=== PATIENT | male | born 1945 | race Caucasian/White ===

== ENCOUNTER 2023-08-11 13:31 | Inpatient (IN) | payer MEDICARE ==
[~2023-08-11] VITALS: Ht 177.8 cm; Wt 69.7 kg
[2023-08-11] MEDS ORDERED: SODIUM CHLORIDE 0.9% 1,000 ML IV ONE (14:30)
[2023-08-11] MEDS ORDERED: SODIUM CHLORIDE 0.9% 2,000 ML IV ONE (14:30)
[2023-08-11] MEDS ORDERED: ACETAMINOPHEN 500 MG TABLET PO ONE (14:30)
[2023-08-11] MEDS ORDERED: 0.9% SODIUM CHLORIDE 10 ML SYRINGE IVP PRN (14:30)
[2023-08-11] MEDS ORDERED: CefTRIAXone 1 GM/DEXTROSE 50 ML IV ONE (14:30)
[2023-08-11 15:02] LABS: COVID AG,FIA SOURCE NASAL SWAB
[2023-08-11 15:04] LABS: HEMOGLOBIN 9.8 g/dL (13.5-17.5); MEAN CORPUSCULAR HEMOGLOBIN 30.8 pg (26.0-34.0); MEAN CORPUSCULAR HGB CONC 32.7 G/dL (31.0-37.0); MEAN CORPUSCULAR VOLUME 94 fL (80-100); PLATELET COUNT (AUTO) 133 K/uL (150-450); RED BLOOD CELL COUNT(AUTO) 3.19 MIL/uL (4.50-5.90); RED CELL DISTRIBUTION WIDTH 18.3 % (11.5-14.5); WHITE BLOOD COUNT (AUTO) 8.4 K/uL (4.5-11.0)
[2023-08-11 15:14] LABS: ANION GAP 10 mmol/L (8-16); CALCIUM, TOTAL 9.6 mg/dL (8.8-10.5); CARBON DIOXIDE 31 mmol/L (22-29); CHLORIDE 98 mmol/L (98-107); CREATININE 4.64 mg/dL (0.60-1.30); GLOMERULAR FILTR. RATE CALC 12 mL/min (>60); GLUCOSE,RANDOM 92 mg/dL (70-110); POTASSIUM 4.1 mmol/L (3.5-5.1); SODIUM SERUM 139 mmol/L (136-145)
[2023-08-11 15:19] LABS: AMMONIA 13 umol/L (11-32); B-TYPE NATRIURETIC PEPTIDE 310 pg/mL (0-100); TROPONIN I-HIGH SENSITIVITY 73 ng/L (<76)
[2023-08-11 15:23] LABS: INR 1.3 (0.9-1.1); PROTHROMBIN TIME 13.5 SEC (9.4-11.6)
[2023-08-11 15:26] LABS: LACTIC ACID 1.8 mmol/L (0.4-2.0)
[2023-08-11 15:30] LABS: INFLUENZA TYPE A NEGATIVE FOR TYPE A (NEGATIVE); INFLUENZA TYPE B NEGATIVE FOR TYPE B (NEGATIVE); SARS-COV2 (COVID) ANTIGEN,FIA Negative (Negative)
[2023-08-11 15:31] LABS: BAND NEUTROPHILS % (MANUAL) 15 % (0-5); MONOCYTES % (MANUAL) 2 % (2-9); SEGMENTED NEUTROPHILS % 83 % (40-70); TOTAL CELLS COUNTED 100
[2023-08-11] MEDS ORDERED: SPIR-37 PO (15:35)
[2023-08-11] MEDS ORDERED: METO25 PO (15:35)
[2023-08-11] MEDS ORDERED: MAGN400T57 PO (15:35)
[2023-08-11] MEDS ORDERED: LEVO112T4 PO (15:35)
[2023-08-11] MEDS ORDERED: TAMS0.4C34 PO (15:35)
[2023-08-11] MEDS ORDERED: CYAN500T56 PO (15:35)
[2023-08-11] MEDS ORDERED: APIX5TAB PO (15:35)
[2023-08-11] MEDS ORDERED: ATOR40TA28 PO (15:35)
[2023-08-11] MEDS ORDERED: FURO40 PO (15:35)
[2023-08-11] MEDS ORDERED: MIRT-149 PO (15:35)
[2023-08-11 15:38] LABS: ALANINE AMINOTRANSFERASE 26 U/L (12-78); ALBUMIN 2.6 g/dL (3.4-5.0); ALKALINE PHOSPHATASE 95 U/L (46-116); ASPARTATE AMINOTRANSFERASE 53 U/L (15-37); BILIRUBIN,TOTAL 1.2 mg/dL (0.1-1.0); CREATINE KINASE, TOTAL ONLY 133 U/L (39-308); TOTAL PROTEIN, SERUM 6.8 g/dL (6.4-8.2)
[2023-08-11 15:42] LABS: UREA NITROGEN, BLOOD 115 mg/dL (7-18)
[2023-08-11] MEDS ORDERED: ACETAMINOPHEN 1000 MG/ISO-OSM 100 ML IV ONE (15:45)
[2023-08-11] MEDS ORDERED: PIPERACILLIN/TAZO 3.375 GM/D5W 50 ML IV ONE (16:00)
[2023-08-11] MEDS ORDERED: BISACODYL 10 MG RECTAL RECTAL SUPPOSITORY PR PRN (16:15)
[2023-08-11] MEDS ORDERED: ONDANSETRON HCL 4 MG/2 ML VIAL IVP PRN (16:15)
[2023-08-11] MEDS ORDERED: ACETAMINOPHEN 325 MG TABLET PO PRN (16:15)
[2023-08-11 16:29] LABS: APPEARANCE,URINE TURBID (CLEAR); BILIRUBIN,URINE NEGATIVE (NEGATIVE); COLOR,URINE LIGHT RED (YELLOW); GLUCOSE, URINE (UA) NEGATIVE (NEGATIVE); KETONES,URINE NEGATIVE (NEGATIVE); LEUKOCYTE ESTERASE ,URINE MODERATE (NEGATIVE); NITRATE,URINE NEGATIVE (NEGATIVE); OCCULT BLOOD,URINE LARGE (NEGATIVE); PROTEIN,URINE >600,SEE CONFIRM mg/dL (NEGATIVE); SPECIFIC GRAVITIY, URINE 1.012 (1.003-1.030); UROBILINOGEN,URINE <=1.0 mg/dL (<=1.0)
[2023-08-11] MEDS ORDERED: NOREPINEPHRINE 8 MG/0.9 % NACL 250 ML IV ONE (16:42)
[2023-08-11] MEDS ORDERED: VANCOMYCIN 1GM/WATER(PEG/NADA) 200 ML IV PRN (16:45)
[2023-08-11 16:49] LABS: SULFOSALICYLIC ACID,URINE 4+ (Negative)
[2023-08-11] MEDS: NOREPINEPHRINE 8 MG/0.9 % NACL 250 ML IV PRN (16:57)
[2023-08-11] MEDS ORDERED: VANCOMYCIN 1GM/WATER(PEG/NADA) 200 ML IV ONE (17:00)
[2023-08-11 17:12] LABS: HEMATOCRIT 25.1 % (41-53); HEMOGLOBIN 8.3 g/dL (13.5-17.5)
[2023-08-11 18:27] LABS: ABG BASE EXCESS 0.1 mmol/L (-2.0-3.0); ABG CARBOXYHEMOGLOBIN 0.2 % (0.0-1.5); ABG HCO3 24.2 mmol/L (22.0-26.0); ABG METHEMOGLOBIN 0.3 % (0.0-1.5); ABG OXYGEN CONTENT 12.9 mL/dL (15.0-23.0); ABG OXYGEN SATURATION 98.1 % (95.0-98.0); ABG OXYHEMOGLOBIN 97.6 % (94.0-100.0); ABG PCO2 55 mmHg (35-45); ABG TOTAL HEMOGLOBIN 9.2 G/dL (12.0-18.0); PO2, ARTERIAL BG 139.9 mmHg (75.0-83.0); SOURCE, BLOOD GAS ARTERIAL; TEMPERATURE, FAHRENHEIT, BG 97.3 FAHREN (96.0-98.6)
[2023-08-11 18:28] LABS: SITE, BLOOD GAS RT BRACHIAL
[2023-08-11 18:29] LABS: O2 DEVICE,BLOOD GAS CANNULA (ROOM AIR)
[2023-08-11 20:00] VITALS: BP 102/50; PULSE 83; PULSE 86; RESP 16; RESP 18; TEMP 96.7; O2SAT 100
[2023-08-11] MEDS ORDERED: SODIUM CHLORIDE 0.9% 1,000 ML IV SCH (20:00)
[2023-08-11 21:00] VITALS: PULSE 83; RESP 16; O2SAT 100
[2023-08-11 23:30] LABS: HEMATOCRIT 26.7 % (41-53); HEMOGLOBIN 8.8 g/dL (13.5-17.5)
[2023-08-12] VITALS (19 sets, daily range): BP systolic 101–136; BP diastolic 48–68; PULSE 76–97; RESP 12–18; TEMP 96.8–98.2; O2SAT 94–100
[2023-08-12] MEDS ORDERED: SODIUM CHLORIDE 0.9% 250 ML IV ONE (02:03)
[2023-08-12] MEDS: PIPERACILLIN SODIUM/TAZOBACTAM 2.25 GM in DEXTROSE 5%-WATER 50 ML IV SCH ×3 (02:06→17:41)
[2023-08-12 05:30] LABS: HEMATOCRIT 26.9 % (41-53); HEMOGLOBIN 8.9 g/dL (13.5-17.5)
[2023-08-12 05:42] LABS: CALCIUM, TOTAL 8.6 mg/dL (8.8-10.5); CREATININE 4.45 mg/dL (0.60-1.30); POTASSIUM 3.5 mmol/L (3.5-5.1)
[2023-08-12] MEDS: ETHYL ALCOHOL 62% ANTISEPTIC NASAL SANITIZER 0.6 ML AMPUL NASAL SCH ×2 (09:14→21:00)
[2023-08-12 09:41] LABS: ABG A-A DIFF O2 47.8 mmHg (10-20.0); ABG BASE EXCESS -0.8 mmol/L (-2.0-3.0); ABG CARBOXYHEMOGLOBIN 0.7 % (0.0-1.5); ABG HCO3 23.8 mmol/L (22.0-26.0); ABG METHEMOGLOBIN 0.3 % (0.0-1.5); ABG OXYGEN CONTENT 14.3 mL/dL (15.0-23.0); ABG OXYGEN SATURATION 98.6 % (95.0-98.0); ABG OXYHEMOGLOBIN 97.6 % (94.0-100.0); ABG PCO2 39 mmHg (35-45); ABG PH 7.407 (7.35-7.450); ABG TOTAL HEMOGLOBIN 10.2 G/dL (12.0-18.0); ALLEN TEST, BLOOD GAS Positive; O2 DEVICE,BLOOD GAS BIPAP (ROOM AIR); PO2, ARTERIAL BG 121.9 mmHg (75.0-83.0); SITE, BLOOD GAS LFT RADIAL; SOURCE, BLOOD GAS ARTERIAL; TEMPERATURE, FAHRENHEIT, BG 95.8 FAHREN (96.0-98.6)
[2023-08-12 09:42] LABS: SPONTANEOUS VT, BG 731 ml
[2023-08-12] MEDS ORDERED: MIDAZOLAM HCL 5 MG/ML VIAL ONE (10:10)
[2023-08-12] MEDS ORDERED: MIDAZOLAM HCL 2 MG/2 ML VIAL ONE (10:12)
[2023-08-12] MEDS ORDERED: HYDROmorphone HCL 2 MG/ML SYRINGE ONE (10:15)
[2023-08-12] MEDS ORDERED: HYDROmorphone HCL 2 MG/ML SYRINGE IVP ONE (11:00)
[2023-08-12] MEDS ORDERED: MIDAZOLAM HCL 2 MG/2 ML VIAL IVP ONE (11:00)
[2023-08-12] MEDS ORDERED: HEPARIN SODIUM,PORCINE 1,000 UNITS/ML VIAL IVCATH PRN ×2 (11:00)
[2023-08-12 11:49] LABS: HEMOGLOBIN 9.4 g/dL (13.5-17.5)
[2023-08-12] MEDS ORDERED: HEPARIN SODIUM,PORCINE 1,000 UNITS/ML VIAL IVP ONE (12:00)
[2023-08-12 13:37] LABS: C.DIFF GDH ANTIGEN, Stool Positive (Negative); C.DIFF TOXINS A&B, Stool Negative (Negative)
[2023-08-12] MEDS ORDERED: SODIUM CHLORIDE 0.9% 2,000 ML ONE (14:34)
[2023-08-12 15:49] LABS: BACTERIA,URINE Many /HPF (None Seen)
[2023-08-12 17:04] LABS: HEMATOCRIT 31.6 % (41-53); HEMOGLOBIN 10.3 g/dL (13.5-17.5)
[2023-08-12 17:29] LABS: RBC,URINE 51-100 /HPF (0-2)
[2023-08-12 17:30] LABS: WBC,URINE 51-100 /HPF (0-5)
[2023-08-12] MEDS: MetroNIDAZOLE 500 MG/NACL 100 ML IV SCH (18:26)
[2023-08-12 23:41] LABS: HEMATOCRIT 28.1 % (41-53); HEMOGLOBIN 9.2 g/dL (13.5-17.5)
[2023-08-13] VITALS (18 sets, daily range): BP systolic 91–152; BP diastolic 50–88; PULSE 71–115; RESP 14–28; TEMP 98.2–99.8; O2SAT 98–99
[2023-08-13] MEDS: PIPERACILLIN SODIUM/TAZOBACTAM 2.25 GM in DEXTROSE 5%-WATER 50 ML IV SCH ×3 (02:21→18:25)
[2023-08-13] MEDS: MetroNIDAZOLE 500 MG/NACL 100 ML IV SCH ×3 (03:30→21:35)
[2023-08-13 06:48] LABS: BASOPHILS % (AUTO) 0.3 % (0.0-2.0); EOSINOPHILS % (AUTO) 0.6 % (1.0-6.0); HEMATOCRIT 29.2 % (41-53); HEMOGLOBIN 9.7 g/dL (13.5-17.5); LYMPHOCYTES # (AUTO) 0.4 K/uL (1.0-4.8); LYMPHOCYTES % (AUTO) 4.3 % (22.0-44.0); MEAN CORPUSCULAR HEMOGLOBIN 31.1 pg (26.0-34.0); MEAN CORPUSCULAR HGB CONC 33.2 G/dL (31.0-37.0); MEAN CORPUSCULAR VOLUME 94 fL (80-100); MONOCYTES # (AUTO) 0.8 K/uL (0.1-1.0); MONOCYTES % (AUTO) 8.5 % (2.0-9.0); PLATELET COUNT (AUTO) 134 K/uL (150-450); RED BLOOD CELL COUNT(AUTO) 3.12 MIL/uL (4.50-5.90); RED CELL DISTRIBUTION WIDTH 18.9 % (11.5-14.5); WHITE BLOOD COUNT (AUTO) 9.3 K/uL (4.5-11.0)
[2023-08-13 06:54] LABS: NEUTROPHILS % (AUTO) 86.3 % (40.0-70.0); RBC MORPHOLOGY COMMENT ABNORMAL RBC MORPH
[2023-08-13 07:06] LABS: CREATININE 3.14 mg/dL (0.60-1.30); MAGNESIUM 1.9 mg/dL (1.80-2.40); PHOSPHORUS 3.9 mg/dL (2.5-4.9)
[2023-08-13 07:17] LABS: POTASSIUM 2.7 mmol/L (3.5-5.1)
[2023-08-13 07:29] LABS: VANCOMYCIN,RANDOM 8.9 mcg/mL (25.0-50.0)
[2023-08-13] MEDS: ETHYL ALCOHOL 62% ANTISEPTIC NASAL SANITIZER 0.6 ML AMPUL NASAL SCH ×2 (08:34→21:35)
[2023-08-13] MEDS: POTASSIUM CHL 10 MEQ/WATER 50 ML IV SCH ×2 (08:35→09:39)
[2023-08-13] MEDS ORDERED: SODIUM CHLORIDE 0.9% 2,000 ML ONE (10:50)
[2023-08-13] MEDS ORDERED: HEPARIN SODIUM,PORCINE 1,000 UNITS/ML VIAL IVP ONE (12:00)
[2023-08-13] MEDS ORDERED: HEPARIN SODIUM,PORCINE 1,000 UNITS/ML VIAL IVCATH ONE ×2 (15:00)
[2023-08-13] MEDS ORDERED: VANCOMYCIN 1GM/WATER(PEG/NADA) 200 ML IV ONE (15:00)
[2023-08-13] MEDS ORDERED: LIDOCAINE/PF 1% 5 ML VIAL ONE (15:27)
[2023-08-13 20:08] LABS: SPECIMENTYPE,BODY FLUID PLEURAL
[2023-08-13 21:05] LABS: APPEARANCE,SPUN,BODY FLUID CLEAR (CLEAR); APPEARANCE,UNSPUN,BODY FLUID HAZY (CLEAR); BASOPHILS,BODY FLUID 0 %; COLOR,BODY FLUID YELLOW (LT YELLOW); EOSINOPHILS,BF (ANAL) 0 %; LYMPHOCYTES,BODY FLUID 10 %; MONOCYTES,BODY FLUID 4 %; NEUTROPHILS,BODY FLUID 75 %; TOTAL VOLUME,BODY FLUID 1400 mL; WBC, BODY FLUID 37 /cu. mm.
[2023-08-13 21:06] LABS: OTHER CELLS,BODY FLUID 10; PH, BODY FLUID 8
[2023-08-14] VITALS (13 sets, daily range): BP systolic 109–143; BP diastolic 57–72; PULSE 86–101; RESP 14–29; TEMP 97.5–99.5; O2SAT 92–100
[2023-08-14] MEDS: PIPERACILLIN SODIUM/TAZOBACTAM 2.25 GM in DEXTROSE 5%-WATER 50 ML IV SCH ×3 (02:43→18:24)
[2023-08-14] MEDS ORDERED: SODIUM CHLORIDE 0.9% 250 ML IV ONE ×2 (03:02→12:09)
[2023-08-14 05:01] LABS: CALCIUM, TOTAL 8.1 mg/dL (8.8-10.5); CREATININE 2.89 mg/dL (0.60-1.30); MAGNESIUM 1.7 mg/dL (1.80-2.40); PHOSPHORUS 2.2 mg/dL (2.5-4.9)
[2023-08-14 05:03] LABS: POTASSIUM 2.9 mmol/L (3.5-5.1)
[2023-08-14] MEDS: POTASSIUM CHL 10 MEQ/WATER 50 ML IV SCH ×2 (05:36→06:39)
[2023-08-14] MEDS: MetroNIDAZOLE 500 MG/NACL 100 ML IV SCH ×3 (05:57→21:21)
[2023-08-14] MEDS: ETHYL ALCOHOL 62% ANTISEPTIC NASAL SANITIZER 0.6 ML AMPUL NASAL SCH ×2 (09:32→21:22)
[2023-08-14] MEDS ORDERED: SODIUM PHOS,M-BASIC-D-BASIC 10 MEQ in DEXTROSE 5%-WATER 50 ML IV ONE (11:30)
[2023-08-14] MEDS ORDERED: MAGNESIUM SULFATE 0.5 GM in DEXTROSE 5%-WATER 50 ML IV ONE (11:30)
[2023-08-14] MEDS ORDERED: OMEP20CA12 PO (11:31)
[2023-08-14 13:06] LABS: GLUCOSE, BODY FLUID,REF 120 mg/dL; LDH,BODY FLUID,REF 85 IU/L
[2023-08-15] VITALS (19 sets, daily range): BP systolic 76–137; BP diastolic 44–96; PULSE 92–105; RESP 9–36; TEMP 97.1–98.6; O2SAT 99–100
[2023-08-15] MEDS: PIPERACILLIN SODIUM/TAZOBACTAM 2.25 GM in DEXTROSE 5%-WATER 50 ML IV SCH ×2 (03:22→09:28)
[2023-08-15 05:21] LABS: CALCIUM, TOTAL 8.3 mg/dL (8.8-10.5); CREATININE 3.92 mg/dL (0.60-1.30); MAGNESIUM 1.9 mg/dL (1.80-2.40); PHOSPHORUS 2.7 mg/dL (2.5-4.9); POTASSIUM 3.1 mmol/L (3.5-5.1)
[2023-08-15] MEDS: MetroNIDAZOLE 500 MG/NACL 100 ML IV SCH ×3 (06:49→21:07)
[2023-08-15] MEDS: POTASSIUM CHL 10 MEQ/WATER 50 ML IV SCH ×2 (07:14→08:39)
[2023-08-15] MEDS: ETHYL ALCOHOL 62% ANTISEPTIC NASAL SANITIZER 0.6 ML AMPUL NASAL SCH ×2 (08:40→20:54)
[2023-08-15] MEDS ORDERED: HEPARIN SODIUM,PORCINE 1,000 UNITS/ML VIAL IVP ONE (12:00)
[2023-08-15] MEDS: ALBUMIN HUMAN 25%-12.5GM/50ML 50 ML IV PRN ×2 (12:06→14:25)
[2023-08-15] MEDS: MIDODRINE HCL 5 MG TABLET NG SCH ×2 (16:00→20:56)
[2023-08-15] MEDS ORDERED: CefTRIAXone 1 GM/DEXTROSE 50 ML IV SCH (17:00)
[2023-08-16] VITALS: BP 95/48; PULSE 100; RESP 36; TEMP 99.6
[2023-08-16 01:22] VITALS: PULSE 103; RESP 25; O2SAT 99
[2023-08-16 03:20] VITALS: PULSE 100; RESP 25; O2SAT 99
[2023-08-16] MEDS: NOREPINEPHRINE 8 MG/0.9 % NACL 250 ML IV PRN (03:40)
[2023-08-16 04:00] VITALS: BP 61/36; PULSE 108; PULSE 96; RESP 24; TEMP 99.6
[2023-08-16] MEDS: ALBUMIN HUMAN 25%-12.5GM/50ML 50 ML IV PRN (04:19)
[2023-08-16 04:30] VITALS: PULSE 62; RESP 20; O2SAT 100
[2023-08-16] MEDS ORDERED: PHENYLEPHRINE 200 MG/D5%-WATER 250 ML IV PRN ×2 (04:45)
[2023-08-16] MEDS ORDERED: VASOPRESSIN 40 UNITS in DEXTROSE 5%-WATER 98 ML IV PRN (04:45)
[2023-08-16] MEDS ORDERED: SODIUM CHLORIDE 0.9% 250 ML IV ONE (04:45)
[2023-08-16 04:53] LABS: ABG BASE EXCESS -10.1 mmol/L (-2.0-3.0); ABG CARBOXYHEMOGLOBIN 0.8 % (0.0-1.5); ABG HCO3 16.9 mmol/L (22.0-26.0); ABG METHEMOGLOBIN 0.3 % (0.0-1.5); ABG OXYGEN CONTENT 10.4 mL/dL (15.0-23.0); ABG OXYGEN SATURATION 97.3 % (95.0-98.0); ABG OXYHEMOGLOBIN 96.2 % (94.0-100.0); ABG PCO2 29 mmHg (35-45); ABG PH 7.351 (7.35-7.450); PO2, ARTERIAL BG 104.8 mmHg (75.0-83.0); SOURCE, BLOOD GAS ARTERIAL; TEMPERATURE, FAHRENHEIT, BG 99.3 FAHREN (96.0-98.6)
[2023-08-16 04:54] LABS: ABG TOTAL HEMOGLOBIN 7.5 G/dL (12.0-18.0); ALLEN TEST, BLOOD GAS POS; O2 DEVICE,BLOOD GAS BIPAP (ROOM AIR); SITE, BLOOD GAS RT BRACHIAL; SPONTANEOUS VT, BG 457 ml
[2023-08-16 04:58] VITALS: BP 61/36; PULSE 44
[2023-08-16] MEDS ORDERED: ROCURONIUM BROMIDE 10 MG/ML 5 ML VIAL IVP ONE (04:58)
[2023-08-16] MEDS ORDERED: ETOMIDATE 2 MG/ML 10 ML VIAL IVP ONE (04:58)
[2023-08-16] MEDS ORDERED: PANTOPRAZOLE SODIUM 40 MG/VIAL IVP ONE (05:15)
[2023-08-16] MEDS ORDERED: PANTOPRAZOLE SODIUM 80 MG in SODIUM CHLORIDE 0.9% 100 ML IV SCH (05:30)
[2023-08-16] MEDS ORDERED: LACTULOSE 200 GM/300 ML RECTAL SOLUTION PR ONE (05:30)
[2023-08-16] MEDS ORDERED: OCTREOTIDE ACETATE 500 MCG in SODIUM CHLORIDE 0.9% 97.5 ML IV SCH (05:30)
[2023-08-16] MEDS ORDERED: EPINEPHrine 2 MG in DEXTROSE 5%-WATER 248 ML IV PRN (05:30)
[2023-08-16] MEDS ORDERED: ETOMIDATE 2 MG/ML 10 ML VIAL IV ONE (05:37)
[2023-08-16] MEDS ORDERED: EPINEPHrine 1:10,000 [1 MG/10 ML] SYRINGE IVP ONE (05:37)
[2023-08-16] MEDS ORDERED: ATROPINE SULFATE 0.1 MG/ML 10 ML SYRINGE IVP ONE (05:37)
[2023-08-16] MEDS ORDERED: SODIUM BICARBONATE [ADULT] 8.4% 50 MEQ/50 ML SYRINGE IVP ONE (05:37)
[2023-08-16 05:44] LABS: ALBUMIN 2.2 g/dL (3.4-5.0); BILIRUBIN,DIRECT 0.3 mg/dL (0.00-0.20); BILIRUBIN,TOTAL 0.6 mg/dL (0.1-1.0); TOTAL PROTEIN, SERUM 5.7 g/dL (6.4-8.2)
[2023-08-16 05:52] LABS: TROPONIN I-HIGH SENSITIVITY 217 ng/L (<76)
[2023-08-16] MEDS ORDERED: VANCOMYCIN HCL 125 MG/2.5 ML SOLUTION ORAL.SYG NG SCH (06:00)
[2023-08-16 06:07] LABS: CALCIUM, TOTAL 8.7 mg/dL (8.8-10.5); CREATININE 3.21 mg/dL (0.60-1.30); POTASSIUM 4.1 mmol/L (3.5-5.1)
== END 2023-08-16 05:38 | DRG 871 ==
LOC: EMS 13:39 → ICU 17:57
PROVIDERS: ADMIT Internal Medicine; ATTEND Internal Medicine
PROC: 5A1D70Z Performance of Urinary Filtration, Intermittent, Less than 6 Hours Per Day (ICD-10-PCS; principal; 2023-08-12)
PROC: 02HV33Z Insertion of Infusion Device into Superior Vena Cava, Percutaneous Approach (ICD-10-PCS; 2023-08-12)
PROC: 5A09357 Assistance with Respiratory Ventilation, Less than 24 Consecutive Hours, Continuous Positive Airway Pressure (ICD-10-PCS; 2023-08-12)
PROC: 5A1D70Z Performance of Urinary Filtration, Intermittent, Less than 6 Hours Per Day (ICD-10-PCS; 2023-08-13)
PROC: 0W993ZZ Drainage of Right Pleural Cavity, Percutaneous Approach (ICD-10-PCS; 2023-08-13)
PROC: 5A09357 Assistance with Respiratory Ventilation, Less than 24 Consecutive Hours, Continuous Positive Airway Pressure (ICD-10-PCS; 2023-08-13)
PROC: 0W993ZZ Drainage of Right Pleural Cavity, Percutaneous Approach (ICD-10-PCS; 2023-08-14)
PROC: 5A09357 Assistance with Respiratory Ventilation, Less than 24 Consecutive Hours, Continuous Positive Airway Pressure (ICD-10-PCS; 2023-08-14)
PROC: 5A1D70Z Performance of Urinary Filtration, Intermittent, Less than 6 Hours Per Day (ICD-10-PCS; 2023-08-15)
PROC: 5A09357 Assistance with Respiratory Ventilation, Less than 24 Consecutive Hours, Continuous Positive Airway Pressure (ICD-10-PCS; 2023-08-15)
PROC: 5A12012 Performance of Cardiac Output, Single, Manual (ICD-10-PCS; 2023-08-16)
PROC: 5A09357 Assistance with Respiratory Ventilation, Less than 24 Consecutive Hours, Continuous Positive Airway Pressure (ICD-10-PCS; 2023-08-16)
PROC: 0BH17EZ Insertion of Endotracheal Airway into Trachea, Via Natural or Artificial Opening (ICD-10-PCS; 2023-08-16)
PROC: 5A1935Z Respiratory Ventilation, Less than 24 Consecutive Hours (ICD-10-PCS; 2023-08-16)
DX: A41.59 Other Gram-negative sepsis (principal); G92.8 Other toxic encephalopathy; R65.21 Severe sepsis with septic shock; I50.23 Acute on chronic systolic (congestive) heart failure; J96.02 Acute respiratory failure with hypercapnia; N17.0 Acute kidney failure with tubular necrosis; J96.01 Acute respiratory failure with hypoxia; I13.0 Hypertensive heart and chronic kidney disease with heart failure and stage 1 through stage 4 chronic kidney disease, or unspecified chronic kidney disease; I48.19 Other persistent atrial fibrillation; N13.8 Other obstructive and reflux uropathy; A04.72 Enterocolitis due to Clostridium difficile, not specified as recurrent; N13.6 Pyonephrosis; J91.8 Pleural effusion in other conditions classified elsewhere; I46.9 Cardiac arrest, cause unspecified; D64.9 Anemia, unspecified; E11.22 Type 2 diabetes mellitus with diabetic chronic kidney disease; E03.9 Hypothyroidism, unspecified; E78.5 Hyperlipidemia, unspecified; E83.39 Other disorders of phosphorus metabolism; E83.42 Hypomagnesemia; E87.6 Hypokalemia; Z20.822 Contact with and (suspected) exposure to COVID-19; I25.10 Atherosclerotic heart disease of native coronary artery without angina pectoris; I27.20 Pulmonary hypertension, unspecified; K70.31 Alcoholic cirrhosis of liver with ascites; N18.9 Chronic kidney disease, unspecified; R31.0 Gross hematuria; F10.20 Alcohol dependence, uncomplicated; K21.9 Gastro-esophageal reflux disease without esophagitis; E11.51 Type 2 diabetes mellitus with diabetic peripheral angiopathy without gangrene; N40.1 Benign prostatic hyperplasia with lower urinary tract symptoms; R33.8 Other retention of urine; D69.6 Thrombocytopenia, unspecified; I95.9 Hypotension, unspecified; Z86.73 Personal history of transient ischemic attack (TIA), and cerebral infarction without residual deficits; Z88.5 Allergy status to narcotic agent; Z91.09 Other allergy status, other than to drugs and biological substances; Z79.899 Other long term (current) drug therapy; Z79.01 Long term (current) use of anticoagulants; Z90.49 Acquired absence of other specified parts of digestive tract; Z87.891 Personal history of nicotine dependence; Z95.5 Presence of coronary angioplasty implant and graft
CPT/HCPCS: 32555; 36600; 51702; 70450; 71045; 74176; 76604; 76770; 76942; 80048; 80053; 80076; 80202; 81001; 81002; 82140; 82271; 82465; 82550; 82805; 82945; 83605; 83615; 83735; 83880; 83986; 84100; 84132; 84145; 84155; 84157; 84484; 85014; 85018; 85025; 85610; 87015; 87040; 87075; 87077; 87081; 87086; 87101; 87186; 87205; 87206; 87324; 87340; 87449; 87804; 89051; 90935; 92610; 92950; 93005; 93306; 93970; 94002; 94660; 99291; C9113; G0378; J0131; J0171; J0461; J0696; J1170; J1644; J2001; J2250; J2354; J2370; J2405; J2543; J3475; J3480; J3490; J7030; J7050; J7060; P9047; Q9967; 36415-L1; 36415-TC; 87070; X7700